=== PATIENT | male | born 1935 | race Caucasian/White ===

== ENCOUNTER 2020-01-09 21:37 | Inpatient (IN) | payer OTHER ==
[~2020-01-09] VITALS: Ht 172.7 cm; Wt 68.9 kg
[~2020-01-09 21:37] MED LIST: DEXAMETHASONE SOD PHOSPHATE 4 MG/ML VIAL IVP ONE; ISOFLURANE 15 MIN GAS INH ONE; LABETALOL 100 MG/ 20ML VIAL IVP ONE; LR 1,000 ML IV.SOLN IV ONE; NS IRRIG SOLN 1000 ML IR ONE; ONDANSETRON HCL 4 MG/2 ML VIAL IVP ONE; PROPOFOL 200MG/ 20ML VIAL (DIPRIVAN) IV ONE; ROCURONIUM BROMIDE 10 MG/ML (ZEMURON) IV ONE; SUCCINYLCHOLINE CHLORIDE 20 MG/ML(QUELICIN) IVP ONE; fentaNYL CITRATE 250 MCG/5 ML AMP IV ONE
[2020-01-09 21:40] VITALS: BP_SYST 141
[2020-01-09] MEDS ORDERED: METO-442 PO (22:12)
[2020-01-09] MEDS ORDERED: LIP10 PO (22:12)
[2020-01-09] MEDS ORDERED: ASPI-1155 PO (22:12)
[2020-01-09] MEDS ORDERED: LOSA100T3 PO (22:12)
[2020-01-09] MEDS ORDERED: HYDR25TA4 PO (22:13)
[2020-01-09] MEDS ORDERED: NOR10 PO (22:13)
[2020-01-09] MEDS ORDERED: PENT400T17 PO (22:14)
[2020-01-09] MEDS ORDERED: NACL 0.9% 1,000 ML IV ONE (22:26)
[2020-01-09] MEDS ORDERED: NS 500 ML IV SCH (22:26)
[2020-01-09] MEDS ORDERED: MORPHINE 4 MG/ML INJ. SYRINGE IVP ONE (22:30)
[2020-01-09] MEDS ORDERED: DIPHENHYDRAMINE INJ 50 MG/ML VIAL IVP ONE (22:30)
[2020-01-09] MEDS ORDERED: ONDANSETRON HCL 4 MG/2 ML VIAL IVP ONE (22:30)
[2020-01-09 23:15] LABS: HEMATOCRIT 44.4 % (36-54); MEAN CORPUSCULAR HEMOGLOBIN 33 pg (27-31); MEAN CORPUSCULAR HGB CONC 34 % (32-36); MEAN CORPUSCULAR VOLUME 98 fL (79.0-98.0); PLATELET COUNT (AUTO) 181 K/uL (130-430); RED BLOOD CELL COUNT(AUTO) 4.51 MIL/uL (4.2-6.2); RED CELL DISTRIBUTION WIDTH 13.2 % (9.0-15.0); WHITE BLOOD COUNT (AUTO) 23.1 K/uL (4.8-10.8)
[2020-01-09 23:23] LABS: ANION GAP 11 (5-15); CALCIUM 9.2 mg/dL (8.4-11.0); CHLORIDE 102 mmol/L (98-107); CREATININE 1.26 mg/dL (0.55-1.30); GLUCOSE 146 mg/dL (70-99); POTASSIUM 3.4 mmol/L (3.5-5.1); SODIUM SERUM 137 mmol/L (136-145); UREA NITROGEN, BLOOD 29 mg/dL (8-21)
[2020-01-09 23:26] LABS: INR 1.2 (0.80-1.20); PROTHROMBIN TIME 11.6 SECS (9.5-12.5)
[2020-01-09 23:29] LABS: ALANINE AMINOTRANSFERASE 24 U/L (12-78); ALBUMIN 3.9 g/dL (3.4-4.8); ASPARTATE AMINOTRANSFERASE 23 U/L (10-37); LIPASE 94 U/L (73-393)
[2020-01-09] MEDS ORDERED: fentaNYL CITRATE/PF 100 MCG/2 ML AMP IVP ONE (23:30)
[2020-01-09 23:37] LABS: BAND % (MANUAL) 10 % (0-6); BASOPHILS % (MANUAL) 0 % (0-2); EOSINOPHILS % (MANUAL) 0 % (0-7); LYMPHOCYTES % (MANUAL) 12 % (20-46); MONOCYTES % (MANUAL) 8 % (0-11)
[2020-01-10] VITALS (12 sets, daily range): BP systolic 107–148
[2020-01-10] MEDS ORDERED: PIPERACILLIN/TAZO 3.375 GM in NS 50 ML IV ONE (00:15)
[2020-01-10 00:45] LABS: BILIRUBIN,URINE NEGATIVE (NEGATIVE); CLARITY/URINE CLEAR (CLEAR); COLOR,URINE YELLOW (YELLOW); GLUCOSE,URINE NEGATIVE (NEGATIVE); KETONES,URINE NEGATIVE (NEGATIVE); LEUKOCYTE ESTERASE ,URINE NEGATIVE (NEGATIVE); NITRITE, URINE NEGATIVE (NEGATIVE); PH,URINE 5.5 (5.0-8.0); PROTEIN URINE NEGATIVE (NEGATIVE); UROBILINOGEN,URINE 0.2 (0.2-1.0)
[2020-01-10 00:47] LABS: BLOOD, URINE TRACE (NEGATIVE)
[2020-01-10 01:17] LABS: BACTERIA,URINE FEW /HPF (None Seen); WBC,URINE 0-3 /HPF (0-3)
[2020-01-10] MEDS ORDERED: PIPERACILLIN/TAZOBACTAM 3.375 GM/VIAL (ZOSYN) IV ONE (01:19)
[2020-01-10] MEDS ORDERED: NACL 0.9% 2,000 ML IV ONE (01:30)
[2020-01-10] MEDS ORDERED: metroNIDAZOLE 500 mg/NS 100 ML IV ONE (03:00)
[2020-01-10] MEDS ORDERED: MORPHINE 4 MG/ML INJ. SYRINGE IVP PRN ×2 (04:30→06:45)
[2020-01-10] MEDS ORDERED: ONDANSETRON HCL 4 MG/2 ML VIAL IVP PRN ×2 (04:30→08:30)
[2020-01-10] MEDS ORDERED: D5LR 1,000 ML IV ONE (04:30)
[2020-01-10 05:50] LABS: HEMATOCRIT 39.2 % (36-54); HEMOGLOBIN 13.1 g/dL (14.0-18.0); MEAN CORPUSCULAR HEMOGLOBIN 33 pg (27-31); MEAN CORPUSCULAR HGB CONC 33 % (32-36); MEAN CORPUSCULAR VOLUME 99 fL (79.0-98.0); PLATELET COUNT (AUTO) 162 K/uL (130-430); RED BLOOD CELL COUNT(AUTO) 3.97 MIL/uL (4.2-6.2); RED CELL DISTRIBUTION WIDTH 13.3 % (9.0-15.0)
[2020-01-10] MEDS ORDERED: PIPERACILLIN/TAZO 3.375 GM in NS 50 ML IV SCH (06:00)
[2020-01-10] MEDS ORDERED: ACETAMINOPHEN 500 MG TABLET PO PRN (06:00)
[2020-01-10 06:11] LABS: ALANINE AMINOTRANSFERASE 19 U/L (12-78); ALBUMIN 3.1 g/dL (3.4-4.8); ANION GAP 10 (5-15); ASPARTATE AMINOTRANSFERASE 19 U/L (10-37); CALCIUM 7.7 mg/dL (8.4-11.0); CHLORIDE 106 mmol/L (98-107); CREATININE 1.53 mg/dL (0.55-1.30); GLUCOSE 123 mg/dL (70-99); POTASSIUM 3.7 mmol/L (3.5-5.1); SODIUM SERUM 140 mmol/L (136-145); TOTAL BILIRUBIN 1.4 mg/dL (0.0-1.0); UREA NITROGEN, BLOOD 27 mg/dL (8-21); WHITE BLOOD COUNT (AUTO) 34.5 K/uL (4.8-10.8)
[2020-01-10] MEDS ORDERED: HYDROmorphone 2 MG/ML VIAL IVP PRN (06:45)
[2020-01-10] MEDS ORDERED: HYDROcodone/ACETAMIN 5-325 MG TAB (NORCO/ VICODIN) PO PRN (06:45)
[2020-01-10] MEDS ORDERED: ACETAMINOPHEN 325 MG TABLET PO PRN (06:45)
[2020-01-10 08:16] LABS: BAND % (MANUAL) 20 % (0-6); BASOPHILS % (MANUAL) 0 % (0-2); EOSINOPHILS % (MANUAL) 0 % (0-7); LYMPHOCYTES % (MANUAL) 4 % (20-46); MONOCYTES % (MANUAL) 7 % (0-11)
[2020-01-10] MEDS ORDERED: HYDROmorphone 1 MG INJ. 1 MG/ML AMPUL IVP PRN ×2 (08:30→17:30)
[2020-01-10] MEDS ORDERED: ENOXAPARIN SODIUM 40 MG/0.4 ML SYRINGE SUBCUT SCH (09:00)
[2020-01-10] MEDS: HYDROmorphone 1 MG INJ. 1 MG/ML AMPUL ONE ×2 (11:11→11:54)
[2020-01-10] MEDS ORDERED: HYDROmorphone 1 MG INJ. 1 MG/ML AMPUL ONE (11:19)
[2020-01-10] MEDS: METOCLOPRAMIDE HCL 10 MG/2 ML VIAL IVP ONE ×2 (11:20→11:54)
[2020-01-10] MEDS ORDERED: ONDANSETRON HCL 4 MG/2 ML VIAL ONE (11:21)
[2020-01-10] MEDS: ACETAMINOPHEN 500 MG TABLET PO SCH ×3 (11:30→21:07)
[2020-01-10] MEDS ORDERED: METOCLOPRAMIDE HCL 10 MG/2 ML VIAL ONE (11:36)
[2020-01-10] MEDS: NACL 0.9% 1,000 ML IV SCH ×2 (11:58→14:42)
[2020-01-10] MEDS: metroNIDAZOLE 500 mg/NS 100 ML IV SCH ×2 (14:44→21:06)
[2020-01-10] MEDS: PIPERACILLIN/TAZO 4.5GM/DEX-IS 100 ML IV SCH ×2 (15:52→21:06)
[2020-01-10] MEDS: GABAPENTIN 100 MG CAPSULE PO SCH ×2 (16:31→21:07)
[2020-01-10] MEDS ORDERED: CYCLOBENZAPRINE HCL 10 MG TABLET (FLEXERIL) PO ONE (17:30)
[2020-01-10] MEDS: CYCLOBENZAPRINE HCL 10 MG TABLET (FLEXERIL) PO SCH (21:07)
[2020-01-11] VITALS (15 sets, daily range): BP systolic 109–170
[2020-01-11] MEDS: NACL 0.9% 1,000 ML IV SCH ×5 (01:48→22:34)
[2020-01-11] MEDS: metroNIDAZOLE 500 mg/NS 100 ML IV SCH ×3 (06:04→21:52)
[2020-01-11] MEDS: PIPERACILLIN/TAZO 4.5GM/DEX-IS 100 ML IV SCH ×3 (06:04→23:31)
[2020-01-11] MEDS: ACETAMINOPHEN 500 MG TABLET PO SCH ×3 (06:05→21:54)
[2020-01-11 07:03] LABS: ALANINE AMINOTRANSFERASE 26 U/L (12-78); ALBUMIN 2.6 g/dL (3.4-4.8); ANION GAP 8 (5-15); CALCIUM 7.9 mg/dL (8.4-11.0); CHLORIDE 106 mmol/L (98-107); GLUCOSE 123 mg/dL (70-99); POTASSIUM 4.1 mmol/L (3.5-5.1); SODIUM SERUM 139 mmol/L (136-145); UREA NITROGEN, BLOOD 31 mg/dL (8-21)
[2020-01-11 07:05] LABS: BASOPHILS % (AUTO) 0.2 % (0.0-2.0); HEMATOCRIT 34.4 % (36-54); HEMOGLOBIN 11.6 g/dL (14.0-18.0); LYMPHOCYTES # (AUTO) 0.8 K/uL (1.0-5.5); LYMPHOCYTES % (AUTO) 3.1 % (20.5-51.5); MEAN CORPUSCULAR HEMOGLOBIN 33 pg (27-31); MEAN CORPUSCULAR HGB CONC 34 % (32-36); MEAN CORPUSCULAR VOLUME 99 fL (79.0-98.0); MONOCYTES # (AUTO) 1.2 K/uL (0.0-1.0); MONOCYTES % (AUTO) 4.7 % (1.7-9.3); NEUTROPHILS # (AUTO) 22.7 K/uL (1.8-7.7); PLATELET COUNT (AUTO) 139 K/uL (130-430); RED CELL DISTRIBUTION WIDTH 13.2 % (9.0-15.0); WHITE BLOOD COUNT (AUTO) 24.7 K/uL (4.8-10.8)
[2020-01-11 07:09] LABS: ASPARTATE AMINOTRANSFERASE 63 U/L (10-37); TOTAL BILIRUBIN 0.6 mg/dL (0.0-1.0)
[2020-01-11] MEDS: GABAPENTIN 100 MG CAPSULE PO SCH ×3 (08:57→21:52)
[2020-01-11] MEDS: CYCLOBENZAPRINE HCL 10 MG TABLET (FLEXERIL) PO SCH ×3 (08:57→21:54)
[2020-01-12 03:32] VITALS: BP_SYST 119
[2020-01-12] MEDS: metroNIDAZOLE 500 mg/NS 100 ML IV SCH ×3 (05:01→22:38)
[2020-01-12] MEDS: PIPERACILLIN/TAZO 4.5GM/DEX-IS 100 ML IV SCH ×3 (06:23→21:27)
[2020-01-12] MEDS: ACETAMINOPHEN 500 MG TABLET PO SCH ×4 (06:31→21:29)
[2020-01-12] MEDS: NACL 0.9% 1,000 ML IV SCH ×3 (06:34→16:55)
[2020-01-12 07:45] VITALS: BP_SYST 151
[2020-01-12] MEDS: GABAPENTIN 100 MG CAPSULE PO SCH ×3 (08:44→21:27)
[2020-01-12] MEDS: CYCLOBENZAPRINE HCL 10 MG TABLET (FLEXERIL) PO SCH ×3 (08:45→21:28)
[2020-01-12 10:03] LABS: BASOPHILS # (AUTO) 0.1 K/uL (0.0-0.2); BASOPHILS % (AUTO) 0.3 % (0.0-2.0); EOSINOPHILS % (AUTO) 0.1 % (0.0-4.0); HEMATOCRIT 38.2 % (36-54); HEMOGLOBIN 12.8 g/dL (14.0-18.0); LYMPHOCYTES % (AUTO) 4.8 % (20.5-51.5); MEAN CORPUSCULAR HEMOGLOBIN 33 pg (27-31); MEAN CORPUSCULAR HGB CONC 33 % (32-36); MEAN CORPUSCULAR VOLUME 98 fL (79.0-98.0); MONOCYTES # (AUTO) 1.1 K/uL (0.0-1.0); MONOCYTES % (AUTO) 5.1 % (1.7-9.3); NEUTROPHILS # (AUTO) 18.6 K/uL (1.8-7.7); NEUTROPHILS % (AUTO) 89.7 % (40.0-70.0); PLATELET COUNT (AUTO) 169 K/uL (130-430); RED BLOOD CELL COUNT(AUTO) 3.91 MIL/uL (4.2-6.2); RED CELL DISTRIBUTION WIDTH 13.1 % (9.0-15.0); WHITE BLOOD COUNT (AUTO) 20.8 K/uL (4.8-10.8)
[2020-01-12 10:04] LABS: CALCIUM 8.2 mg/dL (8.4-11.0); CHLORIDE 103 mmol/L (98-107); GLUCOSE 107 mg/dL (70-99); SODIUM SERUM 139 mmol/L (136-145); UREA NITROGEN, BLOOD 15 mg/dL (8-21)
[2020-01-12 10:13] LABS: ANION GAP 10 (5-15)
[2020-01-12 10:18] LABS: POTASSIUM 2.9 mmol/L (3.5-5.1)
[2020-01-12] MEDS ORDERED: amLODIPine BESYLATE 10 MG TABLET PO ONE (11:15)
[2020-01-12] MEDS ORDERED: LOSARTAN POTASSIUM 50 MG TABLET (COZAAR) PO ONE (11:15)
[2020-01-12] MEDS ORDERED: ASPIRIN 81 MG TAB.CHEW PO ONE (11:15)
[2020-01-12] MEDS ORDERED: ATORVASTATIN 10 MG TABLET PO ONE (11:15)
[2020-01-12] MEDS ORDERED: METOPROLOL TARTRATE 50 MG TABLET PO ONE (11:30)
[2020-01-12] MEDS: POTASSIUM CHLORIDE 20 MEQ/PKT PACKET PO SCH ×2 (11:30→17:14)
[2020-01-12] MEDS ORDERED: PENTOXIFYLLINE 400 MG TABLET.SA (TRENtal) PO ONE (11:30)
[2020-01-12 12:34] VITALS: BP_SYST 186
[2020-01-12] MEDS ORDERED: POTASSIUM CHLORIDE 20 MEQ TAB.PRT.SR PO ONE ×3 (13:15→22:15)
[2020-01-12 14:30] VITALS: BP_SYST 151
[2020-01-12] MEDS: PENTOXIFYLLINE 400 MG TABLET.SA (TRENtal) PO SCH ×2 (14:32→21:28)
[2020-01-12 17:32] VITALS: BP_SYST 155
[2020-01-12 20:00] VITALS: BP_SYST 170
[2020-01-12 20:26] LABS: POTASSIUM 3.2 mmol/L (3.5-5.1)
[2020-01-12] MEDS: METOPROLOL TARTRATE 50 MG TABLET PO SCH (21:30)
[2020-01-13 02:28] VITALS: BP_SYST 152
[2020-01-13] MEDS: NACL 0.9% 1,000 ML IV SCH (02:45)
[2020-01-13] MEDS: ONDANSETRON HCL 4 MG/2 ML VIAL IVP PRN (03:11)
[2020-01-13] MEDS: PIPERACILLIN/TAZO 4.5GM/DEX-IS 100 ML IV SCH ×3 (05:00→22:14)
[2020-01-13] MEDS: ACETAMINOPHEN 500 MG TABLET PO SCH ×3 (07:12→21:00)
[2020-01-13 08:00] VITALS: BP_SYST 153
[2020-01-13] MEDS: METOPROLOL TARTRATE 50 MG TABLET PO SCH ×2 (08:17→22:11)
[2020-01-13] MEDS: ATORVASTATIN 10 MG TABLET PO SCH (08:18)
[2020-01-13] MEDS: GABAPENTIN 100 MG CAPSULE PO SCH ×3 (08:18→22:10)
[2020-01-13] MEDS: LOSARTAN POTASSIUM 50 MG TABLET (COZAAR) PO SCH (08:18)
[2020-01-13] MEDS: ASPIRIN 81 MG TAB.CHEW PO SCH (08:19)
[2020-01-13] MEDS: amLODIPine BESYLATE 10 MG TABLET PO SCH (08:19)
[2020-01-13] MEDS: PENTOXIFYLLINE 400 MG TABLET.SA (TRENtal) PO SCH ×3 (08:20→22:11)
[2020-01-13] MEDS: CYCLOBENZAPRINE HCL 10 MG TABLET (FLEXERIL) PO SCH ×3 (08:20→22:11)
[2020-01-13 09:01] LABS: BASOPHILS # (AUTO) 0.1 K/uL (0.0-0.2); BASOPHILS % (AUTO) 0.4 % (0.0-2.0); EOSINOPHILS # (AUTO) 0.1 K/uL (0.0-0.4); EOSINOPHILS % (AUTO) 0.4 % (0.0-4.0); HEMATOCRIT 40.1 % (36-54); HEMOGLOBIN 13.7 g/dL (14.0-18.0); LYMPHOCYTES # (AUTO) 0.8 K/uL (1.0-5.5); LYMPHOCYTES % (AUTO) 5.2 % (20.5-51.5); MEAN CORPUSCULAR HEMOGLOBIN 33 pg (27-31); MEAN CORPUSCULAR HGB CONC 34 % (32-36); MEAN CORPUSCULAR VOLUME 97 fL (79.0-98.0); MONOCYTES # (AUTO) 1.1 K/uL (0.0-1.0); MONOCYTES % (AUTO) 6.9 % (1.7-9.3); NEUTROPHILS # (AUTO) 13.8 K/uL (1.8-7.7); NEUTROPHILS % (AUTO) 87.1 % (40.0-70.0); PLATELET COUNT (AUTO) 204 K/uL (130-430); RED BLOOD CELL COUNT(AUTO) 4.15 MIL/uL (4.2-6.2); WHITE BLOOD COUNT (AUTO) 15.9 K/uL (4.8-10.8)
[2020-01-13 09:10] LABS: ANION GAP 10 (5-15); CALCIUM 8.6 mg/dL (8.4-11.0); CHLORIDE 103 mmol/L (98-107); CREATININE 0.96 mg/dL (0.55-1.30); GLUCOSE 129 mg/dL (70-99); POTASSIUM 3.6 mmol/L (3.5-5.1); SODIUM SERUM 139 mmol/L (136-145); UREA NITROGEN, BLOOD 12 mg/dL (8-21)
[2020-01-13] MEDS ORDERED: LEVO500T89 PO (10:34)
[2020-01-13] MEDS ORDERED: METR500T PO (10:34)
[2020-01-13 11:53] VITALS: BP_SYST 112
[2020-01-13 16:00] VITALS: BP_SYST 119
[2020-01-14] VITALS (7 sets, daily range): BP systolic 138–150
[2020-01-14] MEDS: ACETAMINOPHEN 500 MG TABLET PO SCH ×4 (04:55→21:22)
[2020-01-14] MEDS: ONDANSETRON HCL 4 MG/2 ML VIAL IVP PRN (04:56)
[2020-01-14] MEDS: PIPERACILLIN/TAZO 4.5GM/DEX-IS 100 ML IV SCH ×3 (04:56→21:23)
[2020-01-14 09:30] LABS: BASOPHILS # (AUTO) 0.1 K/uL (0.0-0.2); BASOPHILS % (AUTO) 0.5 % (0.0-2.0); EOSINOPHILS # (AUTO) 0.3 K/uL (0.0-0.4); EOSINOPHILS % (AUTO) 2.5 % (0.0-4.0); HEMATOCRIT 38.5 % (36-54); HEMOGLOBIN 13.1 g/dL (14.0-18.0); LYMPHOCYTES # (AUTO) 1.5 K/uL (1.0-5.5); LYMPHOCYTES % (AUTO) 11.4 % (20.5-51.5); MEAN CORPUSCULAR HEMOGLOBIN 33 pg (27-31); MEAN CORPUSCULAR HGB CONC 34 % (32-36); MEAN CORPUSCULAR VOLUME 96 fL (79.0-98.0); MONOCYTES # (AUTO) 1.4 K/uL (0.0-1.0); MONOCYTES % (AUTO) 10.7 % (1.7-9.3); NEUTROPHILS # (AUTO) 9.8 K/uL (1.8-7.7); NEUTROPHILS % (AUTO) 74.9 % (40.0-70.0); PLATELET COUNT (AUTO) 228 K/uL (130-430); RED BLOOD CELL COUNT(AUTO) 3.99 MIL/uL (4.2-6.2); RED CELL DISTRIBUTION WIDTH 12.8 % (9.0-15.0); WHITE BLOOD COUNT (AUTO) 13.1 K/uL (4.8-10.8)
[2020-01-14 09:34] LABS: ANION GAP 10 (5-15); CALCIUM 8.6 mg/dL (8.4-11.0); CHLORIDE 103 mmol/L (98-107); CREATININE 0.96 mg/dL (0.55-1.30); GLUCOSE 92 mg/dL (70-99); POTASSIUM 3.2 mmol/L (3.5-5.1); SODIUM SERUM 139 mmol/L (136-145); UREA NITROGEN, BLOOD 24 mg/dL (8-21)
[2020-01-14] MEDS: ATORVASTATIN 10 MG TABLET PO SCH (09:43)
[2020-01-14] MEDS: PENTOXIFYLLINE 400 MG TABLET.SA (TRENtal) PO SCH ×3 (09:43→21:22)
[2020-01-14] MEDS: GABAPENTIN 100 MG CAPSULE PO SCH ×3 (09:43→21:21)
[2020-01-14] MEDS: ASPIRIN 81 MG TAB.CHEW PO SCH (09:44)
[2020-01-14] MEDS: CYCLOBENZAPRINE HCL 10 MG TABLET (FLEXERIL) PO SCH ×3 (09:45→21:21)
[2020-01-14] MEDS: LOSARTAN POTASSIUM 50 MG TABLET (COZAAR) PO SCH (09:52)
[2020-01-14] MEDS: amLODIPine BESYLATE 10 MG TABLET PO SCH (09:52)
[2020-01-14] MEDS: METOPROLOL TARTRATE 50 MG TABLET PO SCH ×2 (09:53→21:23)
[2020-01-14] MEDS ORDERED: POTASSIUM CHLORIDE 20 MEQ/PKT PACKET PO ONE (13:15)
[2020-01-14] MEDS: LR 1,000 ML IV SCH ×2 (15:23→21:25)
[2020-01-14] MEDS: POTASSIUM CHLORIDE 20 MEQ/PKT PACKET PO SCH (21:20)
[2020-01-15] MEDS: PIPERACILLIN/TAZO 4.5GM/DEX-IS 100 ML IV SCH ×3 (06:08→22:08)
[2020-01-15] MEDS: ACETAMINOPHEN 500 MG TABLET PO SCH ×4 (06:08→20:20)
[2020-01-15 08:00] VITALS: BP_SYST 141
[2020-01-15 09:11] LABS: BASOPHILS # (AUTO) 0.1 K/uL (0.0-0.2); BASOPHILS % (AUTO) 0.4 % (0.0-2.0); EOSINOPHILS # (AUTO) 0.4 K/uL (0.0-0.4); EOSINOPHILS % (AUTO) 2.8 % (0.0-4.0); HEMATOCRIT 37.5 % (36-54); HEMOGLOBIN 12.8 g/dL (14.0-18.0); LYMPHOCYTES # (AUTO) 1.7 K/uL (1.0-5.5); LYMPHOCYTES % (AUTO) 11.5 % (20.5-51.5); MEAN CORPUSCULAR HEMOGLOBIN 33 pg (27-31); MEAN CORPUSCULAR HGB CONC 34 % (32-36); MEAN CORPUSCULAR VOLUME 96 fL (79.0-98.0); MONOCYTES # (AUTO) 1.4 K/uL (0.0-1.0); MONOCYTES % (AUTO) 9.6 % (1.7-9.3); NEUTROPHILS # (AUTO) 11.2 K/uL (1.8-7.7); NEUTROPHILS % (AUTO) 75.7 % (40.0-70.0); PLATELET COUNT (AUTO) 247 K/uL (130-430); WHITE BLOOD COUNT (AUTO) 14.7 K/uL (4.8-10.8)
[2020-01-15 09:28] LABS: ALANINE AMINOTRANSFERASE 40 U/L (12-78); ALBUMIN 2.6 g/dL (3.4-4.8); ANION GAP 10 (5-15); ASPARTATE AMINOTRANSFERASE 43 U/L (10-37); CALCIUM 8.7 mg/dL (8.4-11.0); CHLORIDE 103 mmol/L (98-107); CREATININE 1.02 mg/dL (0.55-1.30); GLUCOSE 92 mg/dL (70-99); POTASSIUM 3.2 mmol/L (3.5-5.1); SODIUM SERUM 138 mmol/L (136-145); TOTAL BILIRUBIN 0.9 mg/dL (0.0-1.0); UREA NITROGEN, BLOOD 24 mg/dL (8-21)
[2020-01-15] MEDS: POTASSIUM CHLORIDE 20 MEQ/PKT PACKET PO SCH ×2 (10:17→20:17)
[2020-01-15] MEDS: LR 1,000 ML IV SCH ×2 (10:17→20:17)
[2020-01-15] MEDS: CYCLOBENZAPRINE HCL 10 MG TABLET (FLEXERIL) PO SCH ×3 (10:18→20:20)
[2020-01-15] MEDS: ASPIRIN 81 MG TAB.CHEW PO SCH (10:18)
[2020-01-15] MEDS: GABAPENTIN 100 MG CAPSULE PO SCH ×3 (10:18→20:21)
[2020-01-15] MEDS: PENTOXIFYLLINE 400 MG TABLET.SA (TRENtal) PO SCH ×3 (10:18→20:20)
[2020-01-15] MEDS: ATORVASTATIN 10 MG TABLET PO SCH (10:18)
[2020-01-15] MEDS: amLODIPine BESYLATE 10 MG TABLET PO SCH (10:19)
[2020-01-15] MEDS: METOPROLOL TARTRATE 50 MG TABLET PO SCH ×2 (10:19→20:23)
[2020-01-15] MEDS: LOSARTAN POTASSIUM 50 MG TABLET (COZAAR) PO SCH (10:19)
[2020-01-15 12:50] VITALS: BP_SYST 147
[2020-01-15 16:08] VITALS: BP_SYST 132
[2020-01-15 20:17] VITALS: BP_SYST 117
[2020-01-15 23:32] VITALS: BP_SYST 160
[2020-01-16] MEDS: LR 1,000 ML IV SCH (06:24)
[2020-01-16] MEDS: ACETAMINOPHEN 500 MG TABLET PO SCH ×2 (06:24→11:09)
[2020-01-16] MEDS: PIPERACILLIN/TAZO 4.5GM/DEX-IS 100 ML IV SCH (06:24)
[2020-01-16] MEDS: POTASSIUM CHLORIDE 20 MEQ/PKT PACKET PO SCH (09:21)
[2020-01-16] MEDS: ASPIRIN 81 MG TAB.CHEW PO SCH (09:22)
[2020-01-16] MEDS: LOSARTAN POTASSIUM 50 MG TABLET (COZAAR) PO SCH (09:22)
[2020-01-16] MEDS: CYCLOBENZAPRINE HCL 10 MG TABLET (FLEXERIL) PO SCH (09:23)
[2020-01-16] MEDS: PENTOXIFYLLINE 400 MG TABLET.SA (TRENtal) PO SCH (09:23)
[2020-01-16] MEDS: METOPROLOL TARTRATE 50 MG TABLET PO SCH (09:23)
[2020-01-16] MEDS: GABAPENTIN 100 MG CAPSULE PO SCH (09:23)
[2020-01-16] MEDS: ATORVASTATIN 10 MG TABLET PO SCH (09:23)
[2020-01-16] MEDS: amLODIPine BESYLATE 10 MG TABLET PO SCH (09:23)
[2020-01-16 09:27] VITALS: BP_SYST 140
[2020-01-16 15:22] VITALS: BP_SYST 140
[2020-01-16 15:57] VITALS: BP_SYST 140
== END 2020-01-16 16:00 | disposition home health service (06) | DRG 330 ==
LOC: SED 21:37 → STU 01-10 04:18 → SIC 01-10 11:28 → STU 01-11 15:39 → SMU 01-13 23:43
PROVIDERS: ADMIT Surgery; ATTEND Surgery
PROC: 0D1B0Z4 Bypass Ileum to Cutaneous, Open Approach (ICD-10-PCS; 2020-01-10)
PROC: 0DTN0ZZ Resection of Sigmoid Colon, Open Approach (ICD-10-PCS; principal; 2020-01-10 07:30)
DX: K65.9 Peritonitis, unspecified (principal); K57.20 Diverticulitis of large intestine with perforation and abscess without bleeding; E44.0 Moderate protein-calorie malnutrition; E78.00 Pure hypercholesterolemia, unspecified; I10 Essential (primary) hypertension; I25.10 Atherosclerotic heart disease of native coronary artery without angina pectoris; B96.20 Unspecified Escherichia coli [E. coli] as the cause of diseases classified elsewhere; E87.6 Hypokalemia; Z79.82 Long term (current) use of aspirin; Z85.46 Personal history of malignant neoplasm of prostate; Z87.442 Personal history of urinary calculi; Z95.1 Presence of aortocoronary bypass graft; Z95.2 Presence of prosthetic heart valve; Z79.899 Other long term (current) drug therapy; Z68.23 Body mass index [BMI] 23.0-23.9, adult
CPT/HCPCS: 36415; 71045; 80048; 80053; 81000-TC; 83605; 83690-TC; 83735-TC; 84132-TC; 85007; 85025; 85027; 85610-TC; 85730-TC; 86886; 86900; 86901; 87040-TC; 87070; 87070-TC; 87075-TC; 87081; 87186-TC; 88305; 93005; 94010; 96361; 96365; 96367; 96375; 97110-GP; 97112-GP; 97116-GP; 99285; A5061; G0378; J0330; J1100; J1170; J1200; J2270; J2405; J2543; J2704; J2765; J3010; J3490; J7030; J7040; J7120

== ENCOUNTER 2020-02-01 15:31 | Emergency (ER) | payer OTHER ==
[~2020-02-01] VITALS: Ht 167.6 cm; Wt 59.0 kg
[~2020-02-01 15:31] MED LIST changes: +ASPI-1155 PO; -DEXAMETHASONE SOD PHOSPHATE 4 MG/ML VIAL IVP ONE; -ISOFLURANE 15 MIN GAS INH ONE; -LABETALOL 100 MG/ 20ML VIAL IVP ONE; +LEVO500T89 PO; +LIP10 PO; +LOSA100T3 PO; -LR 1,000 ML IV.SOLN IV ONE; +METO-442 PO; +METR500T PO; +NOR10 PO; -NS IRRIG SOLN 1000 ML IR ONE; -ONDANSETRON HCL 4 MG/2 ML VIAL IVP ONE; +PENT400T17 PO; -PROPOFOL 200MG/ 20ML VIAL (DIPRIVAN) IV ONE; -ROCURONIUM BROMIDE 10 MG/ML (ZEMURON) IV ONE; -SUCCINYLCHOLINE CHLORIDE 20 MG/ML(QUELICIN) IVP ONE; -fentaNYL CITRATE 250 MCG/5 ML AMP IV ONE
[2020-02-01 15:34] VITALS: BP_SYST 126
[2020-02-01 17:00] VITALS: BP_SYST 124
== END 2020-02-01 16:59 | disposition home or self-care (01) ==
LOC: SED 15:31
DX: Z93.3 Colostomy status (principal); Z48.02 Encounter for removal of sutures; Z79.899 Other long term (current) drug therapy; Z87.442 Personal history of urinary calculi; Z79.82 Long term (current) use of aspirin
CPT/HCPCS: 99281

== ENCOUNTER 2020-02-10 16:00 | Emergency (ER) | payer OTHER ==
[~2020-02-10] VITALS: Ht 167.6 cm; Wt 59.0 kg
[2020-02-10 16:00] VITALS: BP_SYST 179
[2020-02-10] MEDS ORDERED: IOHEXOL 100 ML IV ONE (16:46)
[2020-02-10] MEDS ORDERED: HYG25 PO (16:51)
[2020-02-10] MEDS ORDERED: IRON PO (16:51)
[2020-02-10] MEDS ORDERED: METO25TA6 PO (16:51)
[2020-02-10 16:59] LABS: BASOPHILS # (AUTO) 0.2 K/uL (0.0-0.2); BASOPHILS % (AUTO) 0.8 % (0.0-2.0); EOSINOPHILS # (AUTO) 0.1 K/uL (0.0-0.4); EOSINOPHILS % (AUTO) 0.3 % (0.0-4.0); HEMATOCRIT 39.2 % (36-54); HEMOGLOBIN 13.4 g/dL (14.0-18.0); LYMPHOCYTES # (AUTO) 0.8 K/uL (1.0-5.5); MEAN CORPUSCULAR HEMOGLOBIN 33 pg (27-31); MEAN CORPUSCULAR HGB CONC 34 % (32-36); MEAN CORPUSCULAR VOLUME 96 fL (79.0-98.0); MONOCYTES # (AUTO) 1.1 K/uL (0.0-1.0); MONOCYTES % (AUTO) 5.4 % (1.7-9.3); NEUTROPHILS # (AUTO) 17.6 K/uL (1.8-7.7); NEUTROPHILS % (AUTO) 89.5 % (40.0-70.0); PLATELET COUNT (AUTO) 161 K/uL (130-430); RED CELL DISTRIBUTION WIDTH 12.8 % (9.0-15.0); WHITE BLOOD COUNT (AUTO) 19.7 K/uL (4.8-10.8)
[2020-02-10] MEDS: KETOROLAC TROMETHAMINE 30 MG VIAL IVP ONE (17:13)
[2020-02-10] MEDS: NS 500 ML IV ONE (17:17)
[2020-02-10 17:22] LABS: ANION GAP 9 (5-15); CHLORIDE 97 mmol/L (98-107); GLUCOSE 112 mg/dL (70-99); POTASSIUM 4.8 mmol/L (3.5-5.1); SODIUM SERUM 128 mmol/L (136-145); UREA NITROGEN, BLOOD 43 mg/dL (8-21)
[2020-02-10 17:27] LABS: ALANINE AMINOTRANSFERASE 41 U/L (12-78); ALBUMIN 3.7 g/dL (3.4-4.8); ASPARTATE AMINOTRANSFERASE 21 U/L (10-37); TOTAL BILIRUBIN 0.6 mg/dL (0.0-1.0)
[2020-02-10] MEDS: MORPHINE 2 MG/ML INJ. SYRINGE IVP ONE (17:30)
[2020-02-10 17:46] LABS: INR 1.2 (0.80-1.20); PROTHROMBIN TIME 11.6 SECS (9.5-12.5)
[2020-02-10] MEDS: ONDANSETRON HCL 4 MG/2 ML VIAL IVP ONE (18:32)
[2020-02-10] MEDS: metroNIDAZOLE 500 mg/NS 100 ML IV ONE (18:33)
[2020-02-10 19:11] LABS: BILIRUBIN,URINE NEGATIVE (NEGATIVE); BLOOD, URINE 3+ (NEGATIVE); CLARITY/URINE CLEAR (CLEAR); COLOR,URINE YELLOW (YELLOW); GLUCOSE,URINE NEGATIVE (NEGATIVE); KETONES,URINE NEGATIVE (NEGATIVE); LEUKOCYTE ESTERASE ,URINE NEGATIVE (NEGATIVE); NITRITE, URINE NEGATIVE (NEGATIVE); PH,URINE 5.5 (5.0-8.0); PROTEIN URINE NEGATIVE (NEGATIVE); UROBILINOGEN,URINE 0.2 (0.2-1.0)
[2020-02-10 19:26] LABS: BACTERIA,URINE FEW /HPF (None Seen); RBC,URINE 20-50 /HPF (0-3); URIC ACID CRYSTALS,URINE 0-10 /HPF (None Seen); WBC,URINE 0-3 /HPF (0-3)
[2020-02-10 19:43] LABS: BASOPHILS % (AUTO) 0.2 % (0.0-2.0); EOSINOPHILS % (AUTO) 0.3 % (0.0-4.0); HEMATOCRIT 36.8 % (36-54); HEMOGLOBIN 12.4 g/dL (14.0-18.0); LYMPHOCYTES % (AUTO) 5.4 % (20.5-51.5); MEAN CORPUSCULAR HEMOGLOBIN 33 pg (27-31); MEAN CORPUSCULAR HGB CONC 34 % (32-36); MEAN CORPUSCULAR VOLUME 96 fL (79.0-98.0); MONOCYTES # (AUTO) 0.8 K/uL (0.0-1.0); MONOCYTES % (AUTO) 4.4 % (1.7-9.3); NEUTROPHILS # (AUTO) 17.2 K/uL (1.8-7.7); NEUTROPHILS % (AUTO) 89.7 % (40.0-70.0); PLATELET COUNT (AUTO) 149 K/uL (130-430); RED BLOOD CELL COUNT(AUTO) 3.82 MIL/uL (4.2-6.2); RED CELL DISTRIBUTION WIDTH 12.6 % (9.0-15.0); WHITE BLOOD COUNT (AUTO) 19.2 K/uL (4.8-10.8)
[2020-02-10] MEDS: sulfASALAZINE 500 MG TABLET (AZULFIDINE) PO ONE (19:48)
[2020-02-10] MEDS: HEPARIN SODIUM,PORCINE 5000 UNITS/ML VIAL IVP ONE (21:26)
[2020-02-10] MEDS: HEPARIN 25,000 UNITS/D5W 250ML 250 ML IV ONE (21:30)
[2020-02-10 22:02] VITALS: BP_SYST 129
== END 2020-02-10 22:04 | disposition short-term general hospital (02) ==
LOC: SED 16:00
DX: I21.4 Non-ST elevation (NSTEMI) myocardial infarction (principal); R10.31 Right lower quadrant pain; E78.5 Hyperlipidemia, unspecified; N28.9 Disorder of kidney and ureter, unspecified; I10 Essential (primary) hypertension; Z86.73 Personal history of transient ischemic attack (TIA), and cerebral infarction without residual deficits; Z79.899 Other long term (current) drug therapy
CPT/HCPCS: 36415; 71045; 74177; 80053; 81000; 83605; 84484; 85025; 85610; 85730; 87040; 87086; 93005; 96365; 96367; 96375; 99285; J1644 ×2; J1885; J2405; J3490; J7030; Q9967